=== PATIENT | female | born 1975 | race Caucasian/White ===

== ENCOUNTER 2023-06-29 18:40 | Emergency (ER) | payer OTHER ==
[~2023-06-29] VITALS: Ht 154.9 cm; Wt 72.6 kg
[2023-06-29 18:44] VITALS: BP 138/79
[2023-06-29 19:34] LABS: BASOPHILS ABSOLUTE AUTO 0.03 K/mm3 (0.00-0.23); BASOPHILS PERCENT AUTO 1 % (0-2); EOSINOPHILS ABSOLUTE AUTO 0.05 K/mm3 (0.00-0.68); EOSINOPHILS PERCENT AUTO 1 % (0-6); Hematocrit 35.8 % (33.0-51.0); Hemoglobin 11.4 g/dL (11.5-16.0); IMMATURE GRAN ABSOLUTE AUTO 0.01 K/mm3 (0.00-0.10); IMMATURE GRAN PERCENT AUTO 0 % (0-1); LYMPHOCYTES ABSOLUTE AUTO 1.69 K/mm3 (0.84-5.20); LYMPHOCYTES PERCENT AUTO 26 % (21-46); MONOCYTES ABSOLUTE AUTO 0.67 K/mm3 (0.16-1.47); MONOCYTES PERCENT AUTO 11 % (4-13); Mean Corpuscular HGB 24.9 pg (26.0-34.0); Mean Corpuscular HGB Conc 31.8 g/dL (31.5-36.5); Mean Corpuscular Volume 78 fL (80-100); Mean Platelet Volume 9.8 fL (9.1-12.4); NEUTROPHILS ABSOLUTE AUTO 3.94 K/mm3 (1.96-9.15); NEUTROPHILS PERCENT AUTO 62 % (41-73); Platelet Count 370 K/mm3 (150-400); RDW Coefficient Variation 13.7 % (11.7-14.2); RDW Standard Deviation 39.1 fL (35.1-46.3); Red Blood Cell Count 4.58 M/mm3 (3.80-5.20); White Blood Cell Count 6.39 K/mm3 (4.00-11.30)
[2023-06-29 20:04] LABS: Albumin, Blood 3.8 g/dL (3.4-5.0); Bilirubin, Total 0.6 mg/dL (0.1-1.0); Bun/Creatinine Ratio 27.1 (12.0-20.0); Calcium, Blood 8.7 mg/dL (8.5-10.1); Creatinine, Blood 0.59 mg/dL (0.40-1.00); Globulin, Blood 3.7 g/dL (2.2-4.0); Potassium, Blood 3.3 mmol/L (3.5-5.5); Total Protein, Blood 7.5 g/dL (6.4-8.2)
[2023-06-30] MEDS ORDERED: IRON18 MG (18:11)
[2023-06-30] MEDS ORDERED: WEGOVY2.4 MG/0.7 SC (18:11)
== END 2023-06-29 21:51 | disposition left against medical advice (07) ==
LOC: ER 18:40
PROVIDERS: Student in an Organized Health Care Education/Training Program
DX: Z53.21 Procedure and treatment not carried out due to patient leaving prior to being seen by health care provider (principal)
CPT/HCPCS: 80053; 85025

== ENCOUNTER 2023-06-30 17:08 | Emergency (ER) | payer OTHER ==
[~2023-06-30] VITALS: Ht 154.9 cm; Wt 72.6 kg
[2023-06-30 17:44] LABS: BASOPHILS ABSOLUTE AUTO 0.04 K/mm3 (0.00-0.23); BASOPHILS PERCENT AUTO 1 % (0-2); EOSINOPHILS ABSOLUTE AUTO 0.04 K/mm3 (0.00-0.68); EOSINOPHILS PERCENT AUTO 1 % (0-6); Hematocrit 36.2 % (33.0-51.0); Hemoglobin 11.1 g/dL (11.5-16.0); IMMATURE GRAN ABSOLUTE AUTO 0.01 K/mm3 (0.00-0.10); IMMATURE GRAN PERCENT AUTO 0 % (0-1); LYMPHOCYTES PERCENT AUTO 30 % (21-46); MONOCYTES ABSOLUTE AUTO 0.54 K/mm3 (0.16-1.47); MONOCYTES PERCENT AUTO 8 % (4-13); Mean Corpuscular HGB 24.8 pg (26.0-34.0); Mean Corpuscular HGB Conc 30.7 g/dL (31.5-36.5); Mean Corpuscular Volume 81 fL (80-100); Mean Platelet Volume 9.5 fL (9.1-12.4); NEUTROPHILS PERCENT AUTO 61 % (41-73); Platelet Count 334 K/mm3 (150-400); RDW Coefficient Variation 13.7 % (11.7-14.2); RDW Standard Deviation 40.5 fL (35.1-46.3); Red Blood Cell Count 4.48 M/mm3 (3.80-5.20); White Blood Cell Count 6.43 K/mm3 (4.00-11.30)
[2023-06-30 18:02] LABS: Albumin, Blood 3.7 g/dL (3.4-5.0); Bilirubin, Total 0.4 mg/dL (0.1-1.0); Bun/Creatinine Ratio 29.9 (12.0-20.0); Calcium, Blood 9.1 mg/dL (8.5-10.1); Creatinine, Blood 0.54 mg/dL (0.40-1.00); Globulin, Blood 3.6 g/dL (2.2-4.0); Potassium, Blood 3.4 mmol/L (3.5-5.5); Total Protein, Blood 7.3 g/dL (6.4-8.2)
[2023-06-30] MEDS ORDERED: WEGOVY2.4 MG/0.7 SC (18:11)
[2023-06-30] MEDS ORDERED: IRON18 MG (18:11)
[2023-06-30 19:45] VITALS: BP 115/99
== END 2023-06-30 20:01 | disposition home or self-care (01) ==
LOC: ER 17:08
PROVIDERS: Physician Assistant
DX: K29.00 Acute gastritis without bleeding (principal); Z88.0 Allergy status to penicillin; Z79.85 Long-term (current) use of injectable non-insulin antidiabetic drugs; Z79.899 Other long term (current) drug therapy; Z98.84 Bariatric surgery status; Z90.49 Acquired absence of other specified parts of digestive tract
CPT/HCPCS: 74177; 80053; 83690; 84703; 85025; 99284-25; Q9967

== ENCOUNTER → 2023-07-13 | Outpatient (CLI) | payer OTHER ==
[~2023-07-13] MED LIST: IRON18 MG; WEGOVY2.4 MG/0.7 SC
[2023-07-13 14:54] LABS: BASOPHILS ABSOLUTE AUTO 0.02 K/mm3 (0.00-0.23); BASOPHILS PERCENT AUTO 1 % (0-2); EOSINOPHILS ABSOLUTE AUTO 0.02 K/mm3 (0.00-0.68); EOSINOPHILS PERCENT AUTO 1 % (0-6); Hematocrit 37.3 % (33.0-51.0); Hemoglobin 11.6 g/dL (11.5-16.0); IMMATURE GRAN ABSOLUTE AUTO 0.01 K/mm3 (0.00-0.10); IMMATURE GRAN PERCENT AUTO 0 % (0-1); LYMPHOCYTES ABSOLUTE AUTO 1.27 K/mm3 (0.84-5.20); LYMPHOCYTES PERCENT AUTO 29 % (21-46); MONOCYTES ABSOLUTE AUTO 0.26 K/mm3 (0.16-1.47); MONOCYTES PERCENT AUTO 6 % (4-13); Mean Corpuscular HGB 24.9 pg (26.0-34.0); Mean Corpuscular HGB Conc 31.1 g/dL (31.5-36.5); Mean Corpuscular Volume 80 fL (80-100); Mean Platelet Volume 9.7 fL (9.1-12.4); NEUTROPHILS ABSOLUTE AUTO 2.75 K/mm3 (1.96-9.15); NEUTROPHILS PERCENT AUTO 64 % (41-73); Platelet Count 292 K/mm3 (150-400); RDW Coefficient Variation 13.8 % (11.7-14.2); RDW Standard Deviation 39.6 fL (35.1-46.3); Red Blood Cell Count 4.65 M/mm3 (3.80-5.20); White Blood Cell Count 4.33 K/mm3 (4.00-11.30)
[2023-07-13 15:07] LABS: Albumin, Blood 3.8 g/dL (3.4-5.0); Bilirubin, Total 0.6 mg/dL (0.1-1.0); Bun/Creatinine Ratio 22.7 (12.0-20.0); Calcium, Blood 8.7 mg/dL (8.5-10.1); Creatinine, Blood 0.66 mg/dL (0.40-1.00); Globulin, Blood 3.8 g/dL (2.2-4.0); Potassium, Blood 3.5 mmol/L (3.5-5.5); Total Protein, Blood 7.6 g/dL (6.4-8.2)
== END ==
LOC: LAB 14:46 → LAB SHORT 14:46
PROVIDERS: Physician Assistant Surgical
DX: R42 Dizziness and giddiness (principal)
CPT/HCPCS: 80053; 83690; 85025

== ENCOUNTER 2023-08-01 15:08 | Emergency (ER) | payer OTHER ==
[~2023-08-01] VITALS: Ht 162.6 cm; Wt 68.0 kg
[2023-08-01] MEDS ORDERED: DiphenhydrAMINE HCl 50 MG/ML 1ML Vial IV ONE (16:15)
[2023-08-01] MEDS ORDERED: Metoclopramide HCl 5MG / ML 2ML Vial IV ONE (16:15)
[2023-08-01 16:30] LABS: BASOPHILS ABSOLUTE AUTO 0.02 K/mm3 (0.00-0.23); BASOPHILS PERCENT AUTO 0 % (0-2); EOSINOPHILS PERCENT AUTO 0 % (0-6); Hematocrit 30.9 % (33.0-51.0); Hemoglobin 9.8 g/dL (11.5-16.0); IMMATURE GRAN ABSOLUTE AUTO 0.01 K/mm3 (0.00-0.10); IMMATURE GRAN PERCENT AUTO 0 % (0-1); LYMPHOCYTES ABSOLUTE AUTO 0.64 K/mm3 (0.84-5.20); LYMPHOCYTES PERCENT AUTO 11 % (21-46); MONOCYTES ABSOLUTE AUTO 0.34 K/mm3 (0.16-1.47); MONOCYTES PERCENT AUTO 6 % (4-13); Mean Corpuscular HGB 25.1 pg (26.0-34.0); Mean Corpuscular HGB Conc 31.7 g/dL (31.5-36.5); Mean Corpuscular Volume 79 fL (80-100); Mean Platelet Volume 9.5 fL (9.1-12.4); NEUTROPHILS ABSOLUTE AUTO 4.84 K/mm3 (1.96-9.15); NEUTROPHILS PERCENT AUTO 83 % (41-73); Platelet Count 293 K/mm3 (150-400); RDW Coefficient Variation 13.2 % (11.7-14.2); RDW Standard Deviation 37.6 fL (35.1-46.3); White Blood Cell Count 5.85 K/mm3 (4.00-11.30)
[2023-08-01 16:50] LABS: Albumin, Blood 3.3 g/dL (3.4-5.0); Albumin/Globulin Ratio 1.1 (0.8-1.8); Bilirubin, Total 0.8 mg/dL (0.1-1.0); Bun/Creatinine Ratio 17.4 (12.0-20.0); Calcium, Blood 8.4 mg/dL (8.5-10.1); Creatinine, Blood 0.57 mg/dL (0.40-1.00); Globulin, Blood 3.1 g/dL (2.2-4.0); Magnesium, Blood 1.8 mg/dL (1.6-2.4); Potassium, Blood 3.3 mmol/L (3.5-5.5); Total Protein, Blood 6.4 g/dL (6.4-8.2)
[2023-08-01] MEDS ORDERED: LORazepam 2 MG/ML 1ML Injection IV ONE (17:20)
[2023-08-01] MEDS ORDERED: Potassium Chloride 20 MEQ TabCR PO ONE (17:25)
[2023-08-01] MEDS ORDERED: NS 1,000 ML IV SCH (17:25)
[2023-08-01 17:47] LABS: Influenza A, PCR NEGATIVE (NEGATIVE); Influenza B, PCR NEGATIVE (NEGATIVE); Resp Syncytial Virus, PCR NEGATIVE (NEGATIVE); SARS-Cov-2 (COVID-19) PCR, MMC NEGATIVE (NEGATIVE)
[2023-08-01] MEDS ORDERED: Meclizine HCl 25 MG Tab PO ONE (18:25)
[2023-08-01] MEDS ORDERED: PROM25 PO (19:44)
[2023-08-01 19:45] VITALS: BP 124/74
[2023-08-01] MEDS ORDERED: RX Prepack 2 Tabs Ondansetron ODT 4MG UD ONE (19:45)
== END 2023-08-01 20:05 | disposition home or self-care (01) ==
LOC: ER 15:08
PROVIDERS: Student in an Organized Health Care Education/Training Program
DX: E87.6 Hypokalemia (principal); Z79.84 Long term (current) use of oral hypoglycemic drugs; Z88.0 Allergy status to penicillin
CPT/HCPCS: 0241U; 70450; 80053; 83690; 83735; 85025; 93005; 93010; 96361; 96374; 96375; 99285-25; A9270; J1200; J2060; J2765; J7030

== ENCOUNTER 2023-08-06 07:41 | Inpatient (IN) | payer OTHER ==
[~2023-08-06] VITALS: Ht 157.5 cm; Wt 73.6 kg
[~2023-08-06 07:41] MED LIST changes: +PROM25 PO
[2023-08-06] MEDS ORDERED: NS 1,000 ML IV SCH (07:55)
[2023-08-06] MEDS ORDERED: HYDROmorphone HCl/Pf 1MG SYR IV ONE (08:55)
[2023-08-06] MEDS ORDERED: Ondansetron HCl 2 MG / ML 2ML Vial IV ONE (08:55)
[2023-08-06 09:06] LABS: BASOPHILS ABSOLUTE AUTO 0.02 K/mm3 (0.00-0.23); BASOPHILS PERCENT AUTO 1 % (0-2); EOSINOPHILS ABSOLUTE AUTO 0.05 K/mm3 (0.00-0.68); EOSINOPHILS PERCENT AUTO 1 % (0-6); Hematocrit 32.6 % (33.0-51.0); Hemoglobin 10.1 g/dL (11.5-16.0); IMMATURE GRAN ABSOLUTE AUTO 0.01 K/mm3 (0.00-0.10); IMMATURE GRAN PERCENT AUTO 0 % (0-1); LYMPHOCYTES ABSOLUTE AUTO 0.75 K/mm3 (0.84-5.20); LYMPHOCYTES PERCENT AUTO 19 % (21-46); MONOCYTES ABSOLUTE AUTO 0.52 K/mm3 (0.16-1.47); MONOCYTES PERCENT AUTO 14 % (4-13); Mean Corpuscular HGB 24.8 pg (26.0-34.0); Mean Corpuscular Volume 80 fL (80-100); Mean Platelet Volume 9.9 fL (9.1-12.4); NEUTROPHILS ABSOLUTE AUTO 2.51 K/mm3 (1.96-9.15); NEUTROPHILS PERCENT AUTO 65 % (41-73); Platelet Count 235 K/mm3 (150-400); RDW Coefficient Variation 13.2 % (11.7-14.2); RDW Standard Deviation 38.1 fL (35.1-46.3); Red Blood Cell Count 4.07 M/mm3 (3.80-5.20); White Blood Cell Count 3.86 K/mm3 (4.00-11.30)
[2023-08-06 09:23] LABS: Alanine Aminotransfer (ALT/SGP 13 U/L (12-78); Albumin, Blood 3.4 g/dL (3.4-5.0); Albumin/Globulin Ratio 1.1 (0.8-1.8); Alk Phos 62 U/L (50-136); Anion Gap Unable to Calculate mmol/L (6-16); Aspartate Aminotrans (AST/SGOT 12 U/L (12-37); Bilirubin, Total 0.5 mg/dL (0.1-1.0); Blood Urea Nitrogen 10 mg/dL (8-24); Bun/Creatinine Ratio 16.1 (12.0-20.0); CO2, Blood 29 mmol/L (21-32); Calcium, Blood 8.7 mg/dL (8.5-10.1); Chloride, Blood 112 mmol/L (98-108); Creatinine, Blood 0.62 mg/dL (0.40-1.00); Globulin, Blood 3.2 g/dL (2.2-4.0); Glomerular Filtration Rate 112 (60-); Glucose, Blood 88 mg/dL (70-99); Potassium, Blood 3.8 mmol/L (3.5-5.5); Sodium, Blood 140 mmol/L (136-145); Total Protein, Blood 6.6 g/dL (6.4-8.2)
[2023-08-06] MEDS ORDERED: Ondansetron HCl 2 MG / ML 2ML Vial ONE (10:24)
[2023-08-06 10:53] LABS: Influenza A, PCR NEGATIVE (NEGATIVE); Influenza B, PCR NEGATIVE (NEGATIVE); Resp Syncytial Virus, PCR NEGATIVE (NEGATIVE); SARS-Cov-2 (COVID-19) PCR, MMC NEGATIVE (NEGATIVE)
[2023-08-06] MEDS ORDERED: CefTRIAXone Sodium 1,000 MG in NS 50 ML IV ONE (11:55)
[2023-08-06] MEDS ORDERED: Meclizine HCl 25 MG Tab PO ONE (12:40)
[2023-08-06] MEDS ORDERED: Ketorolac Tromethamine 30mg Vial IV ONE (12:40)
[2023-08-06 12:46] LABS: Prothrombin Time Results 10.5 Sec (9.7-11.5)
[2023-08-06 15:19] LABS: Glucose, CSF 51 mg/dL (40-70)
[2023-08-06 15:22] LABS: Automated CSF WBC Count 0.001 K/mm3 (0-5)
[2023-08-06 15:24] LABS: Automated CSF WBC Count 0.002 K/mm3 (0-5)
[2023-08-06] MEDS ORDERED: Promethazine HCl 25 MG Tab PO PRN (15:45)
[2023-08-06] MEDS ORDERED: Acetaminophen 325 MG TABLET PO PRN (15:55)
[2023-08-06] MEDS ORDERED: FLU VACC QS2023-24(6MOS UP)/PF 60 MCG/0.5 ML SYRINGE IM SCH (15:55)
[2023-08-06 16:07] LABS: RBC Count, CSF 0 /mm3 (0-0); WBC Count, CSF 1 /mm3 (0-5)
[2023-08-06 16:29] LABS: RBC Count, CSF 1 /mm3 (0-0); WBC Count, CSF 1 /mm3 (0-5)
[2023-08-06 16:33] LABS: Appearance, CSF Clear (Clear); Color, CSF No Color (No Color)
[2023-08-06 16:34] LABS: Appearance, CSF Clear (Clear); Color, CSF No Color (No Color)
[2023-08-06 17:04] LABS: Cryptococcus Neoformans/Gattii Not Detected (NOT DETECT); Enterovirus Not Detected (NOT DETECT); Escherichia Coli K1 Not Detected (NOT DETECT); Haemophilus Influenza Not Detected (NOT DETECT); Herpes Simplex Virus 1 Not Detected (NOT DETECT); Herpes Simplex Virus 2 Not Detected (NOT DETECT); Human Herpesvirus 6 Not Detected (NOT DETECT); Human Parechovirus Not Detected (NOT DETECT); Listeria Monocytogenes Not Detected (NOT DETECT); Neisseria Meningitidis Not Detected (NOT DETECT); Streptococcus Agalactiae Not Detected (NOT DETECT); Streptococcus Pneumoniae Not Detected (NOT DETECT); Varicella Zoster Virus Not Detected (NOT DETECT)
[2023-08-06 18:18] VITALS: BP 127/79
--- NOTE | 2023-08-06 18:29 | NUR ---
Pt arrived to 328 via wheelchair from ED, she is able to easily stand and move to bed, she reports dizziness, but has a stable gait, a/ox4, pleasant and cooperative with care, follows commands well, denies numbness or tingling, lungs are clear t/o, on r/a, resp even and unlabored, no cough noted, hrr, no edema noted, ppp+2, cap refill <3 sec, vs stable, afebrile, iv site is clear an patent, s.l. btx4, abd flat soft nontender, voids without diff, skin c/w/d, eliseo thurston, oriented to room layout and call system, call light in reach.
[2023-08-06] MEDS ORDERED: FEROSUL325 MG PO (18:59)
[2023-08-06 20:03] VITALS: BP 124/72
[2023-08-06] MEDS ORDERED: Azithromycin 250 MG Tab PO SCH (21:00)
[2023-08-06] MEDS ORDERED: NS 250 ML IV PRN (21:10)
[2023-08-07 03:21] VITALS: BP 110/57
--- NOTE | 2023-08-07 04:35 | NUR ---
SHIFT SUMMARY PT A&OX4 AND ANSWERS QUESTIONS APPROPRIATELY. VSS. NO COMPLAINTS OF CP OR SOB DURING SHIFT. PT COMPLAINS OF DIZZINESS, INFORMED PHYSICIAN AND ADMINISTERED PHENERGAN. ANTIBIOTICS ORDERED AND ADMINISTERED PER EMAR FOR PNEUMONIA. NO ACUTE EVENTS AT THIS TIME, PT SLEPT THROUGH MOST OF SHIFT WITH EYES CLOSED AND RESPIRATIONS EVEN AND UNLABORED. PT LEFT IN A POSITION OF SAFETY WITH APPROPRIATE FALL PRECAUTIONS IN PLACE AND CALL LIGHT IN REACH.
[2023-08-07 05:27] LABS: BASOPHILS ABSOLUTE AUTO 0.02 K/mm3 (0.00-0.23); BASOPHILS PERCENT AUTO 1 % (0-2); EOSINOPHILS ABSOLUTE AUTO 0.08 K/mm3 (0.00-0.68); EOSINOPHILS PERCENT AUTO 2 % (0-6); Hemoglobin 9.3 g/dL (11.5-16.0); IMMATURE GRAN ABSOLUTE AUTO 0.01 K/mm3 (0.00-0.10); IMMATURE GRAN PERCENT AUTO 0 % (0-1); LYMPHOCYTES ABSOLUTE AUTO 0.92 K/mm3 (0.84-5.20); LYMPHOCYTES PERCENT AUTO 25 % (21-46); MONOCYTES ABSOLUTE AUTO 0.56 K/mm3 (0.16-1.47); MONOCYTES PERCENT AUTO 15 % (4-13); Mean Corpuscular HGB 24.7 pg (26.0-34.0); Mean Corpuscular Volume 80 fL (80-100); Mean Platelet Volume 9.8 fL (9.1-12.4); NEUTROPHILS ABSOLUTE AUTO 2.16 K/mm3 (1.96-9.15); NEUTROPHILS PERCENT AUTO 58 % (41-73); Platelet Count 205 K/mm3 (150-400); RDW Coefficient Variation 13.2 % (11.7-14.2); RDW Standard Deviation 37.8 fL (35.1-46.3); Red Blood Cell Count 3.77 M/mm3 (3.80-5.20); White Blood Cell Count 3.75 K/mm3 (4.00-11.30)
[2023-08-07 05:55] LABS: Albumin, Blood 2.9 g/dL (3.4-5.0); Albumin/Globulin Ratio 0.9 (0.8-1.8); Bilirubin, Total 0.3 mg/dL (0.1-1.0); Bun/Creatinine Ratio 22.9 (12.0-20.0); Calcium, Blood 8.4 mg/dL (8.5-10.1); Creatinine, Blood 0.66 mg/dL (0.40-1.00); Globulin, Blood 3.2 g/dL (2.2-4.0); Magnesium, Blood 1.9 mg/dL (1.6-2.4); Total Protein, Blood 6.1 g/dL (6.4-8.2)
[2023-08-07 08:04] VITALS: BP 112/75
[2023-08-07] MEDS ORDERED: Metoclopramide HCl 5MG / ML 2ML Vial IV ONE (08:20)
[2023-08-07] MEDS ORDERED: Dihydroergotamine Mesylate 1 MG/ML AMP IV ONE (08:20)
[2023-08-07] MEDS ORDERED: NS 1,000 ML IV SCH (08:30)
[2023-08-07] MEDS ORDERED: Ketorolac Tromethamine 30mg Vial IM ONE (09:00)
[2023-08-07] MEDS ORDERED: Enoxaparin 40 MG/0.4 ML SYR SC SCH (09:00)
[2023-08-07 10:03] VITALS: BP 126/79
[2023-08-07 10:30] VITALS: BP 127/83
[2023-08-07] MEDS ORDERED: CefTRIAXone Sodium 1,000 MG in NS 50 ML IV SCH (12:00)
[2023-08-07 15:11] VITALS: BP 124/68
[2023-08-07] MEDS ORDERED: AZIT500 PO (17:21)
[2023-08-07] MEDS ORDERED: MECL25 PO (17:22)
[2023-08-07] MEDS ORDERED: CEFP200 PO (17:22)
[2023-08-07] MEDS ORDERED: METO10 PO (17:24)
--- NOTE | 2023-08-07 19:55 | NUR ---
DISCHARGE SUMMARY PATIENT GIVEN NEW MIGRAINE MEDICATION THIS AM THROUGH IV, DHE. PATIENT REPORTED BURNING IN HER HEAD WITH ADMINISTRATION AFTER MOST MEDICATION WAS IN. MORGUE TECHNICIAN STOPPED MED IMMEDIATELY AND DID NOT GIVE LAST 0.15ML OF MEDICATION WHICH WAS DILUTED IN SALINE SYRINGE TO TOTAL 1.5ML IN SALINE NOT GIVEN. MEDICATION WAS GIVEN OVER 2-[address] DANIEL, ORDER TO NOT GIVE REST OF IT, GIVE THE ORDERED REGLAN AND TORADOL. MEDS GIVEN, PATIENT REPORTS CHEST TIGHNTESS, SO EKG DONE AND DR NOTIFIED. CARIE BURCH. SYMPTOMS RESOLVED OVER NEXT HOUR. PATIENT REPORTS BASELINE OF HEADACHE AND DIZZINESS SHE ORIGINALLY CAME IN WITH. PATIENT WAS DISCHARGED TODAY AFTER CONSENTS SIGNED AND MEDICATION AND EDUCATION PRINTOUTS PROVIDED AND REVIEWED WITH PATIENT AND . PATIENT LEFT UNIT AT 1745 TODAY WITH ALL QUESTIONS ANSWERED. MEDICATIONS FAXED TO [facility].
== END 2023-08-07 17:45 | disposition home or self-care (01) | DRG 149 ==
LOC: ER 07:41 → MEDS 15:51
PROVIDERS: Emergency Medicine; ADMIT Family Medicine
DX: R42 Dizziness and giddiness (principal); J18.9 Pneumonia, unspecified organism; R11.2 Nausea with vomiting, unspecified; M54.2 Cervicalgia; Z11.52 Encounter for screening for COVID-19; Z88.0 Allergy status to penicillin; Z79.899 Other long term (current) drug therapy
CPT/HCPCS: 0241U; 36415; 62270; 62328; 70496; 70498; 71046; 80053; 82945; 83735; 84157; 85025; 85610; 87483; 89051; 93005; 93010; 96365-59; 96375-59; 96376-59; 99285-25; A9270; J0696; J1110; J1170; J1650; J1885; J2405; J2765; J7030; Q9967

== ENCOUNTER 2023-10-01 07:47 | Emergency (ER) | payer OTHER ==
[~2023-10-01] VITALS: Ht 154.9 cm; Wt 83.9 kg
[~2023-10-01 07:47] MED LIST changes: +AZIT500 PO; +CEFP200 PO; +FEROSUL325 MG PO; +MECL25 PO; +METO10 PO
[2023-10-01 10:25] LABS: BASOPHILS ABSOLUTE AUTO 0.04 K/mm3 (0.00-0.23); BASOPHILS PERCENT AUTO 1 % (0-2); EOSINOPHILS ABSOLUTE AUTO 0.04 K/mm3 (0.00-0.68); EOSINOPHILS PERCENT AUTO 1 % (0-6); Hematocrit 31.5 % (33.0-51.0); Hemoglobin 9.1 g/dL (11.5-16.0); IMMATURE GRAN ABSOLUTE AUTO 0.02 K/mm3 (0.00-0.10); IMMATURE GRAN PERCENT AUTO 0 % (0-1); LYMPHOCYTES ABSOLUTE AUTO 1.43 K/mm3 (0.84-5.20); LYMPHOCYTES PERCENT AUTO 26 % (21-46); MONOCYTES ABSOLUTE AUTO 0.48 K/mm3 (0.16-1.47); MONOCYTES PERCENT AUTO 9 % (4-13); Mean Corpuscular HGB 22.7 pg (26.0-34.0); Mean Corpuscular HGB Conc 28.9 g/dL (31.5-36.5); Mean Corpuscular Volume 79 fL (80-100); Mean Platelet Volume 10.1 fL (9.1-12.4); NEUTROPHILS ABSOLUTE AUTO 3.53 K/mm3 (1.96-9.15); NEUTROPHILS PERCENT AUTO 64 % (41-73); Platelet Count 267 K/mm3 (150-400); RDW Coefficient Variation 13.4 % (11.7-14.2); RDW Standard Deviation 38.1 fL (35.1-46.3); Red Blood Cell Count 4.01 M/mm3 (3.80-5.20); White Blood Cell Count 5.54 K/mm3 (4.00-11.30)
[2023-10-01 10:54] LABS: Albumin, Blood 3.2 g/dL (3.4-5.0); Albumin/Globulin Ratio 0.9 (0.8-1.8); Bilirubin, Total 0.4 mg/dL (0.1-1.0); Bun/Creatinine Ratio 22.3 (12.0-20.0); Calcium, Blood 8.6 mg/dL (8.5-10.1); Creatinine, Blood 0.58 mg/dL (0.40-1.00); Globulin, Blood 3.4 g/dL (2.2-4.0); Potassium, Blood 3.9 mmol/L (3.5-5.5); Total Protein, Blood 6.6 g/dL (6.4-8.2)
[2023-10-01 11:48] VITALS: BP 137/94
[2023-10-01] MEDS ORDERED: IBUP600 PO (11:55)
== END 2023-10-01 12:03 | disposition home or self-care (01) ==
LOC: ER 07:47
PROVIDERS: Physician Assistant
DX: R42 Dizziness and giddiness (principal); H73.893 Other specified disorders of tympanic membrane, bilateral; Z79.899 Other long term (current) drug therapy; Z88.0 Allergy status to penicillin
CPT/HCPCS: 80053; 85025; 93005; 93010; 99284-25

== ENCOUNTER 2024-02-05 09:06 | Emergency (ER) | payer OTHER ==
[~2024-02-05] VITALS: Ht 165.1 cm; Wt 74.8 kg
[~2024-02-05 09:06] MED LIST changes: +IBUP600 PO
[2024-02-05] MEDS ORDERED: BUPROPION XL150 M1 PO (09:58)
[2024-02-05] MEDS ORDERED: ENSKYCE 28 TAB1 EACH PO (09:58)
[2024-02-05 17:00] VITALS: BP 126/90
== END 2024-02-05 17:30 | disposition home or self-care (01) ==
LOC: ER 09:06
DX: R42 Dizziness and giddiness (principal); R20.2 Paresthesia of skin; Z79.899 Other long term (current) drug therapy; Z88.0 Allergy status to penicillin
CPT/HCPCS: 70553; 72156; 99283-25; A9579

== ENCOUNTER → 2025-03-04 | Outpatient (CLI) | payer OTHER ==
[~2025-03-04] MED LIST changes: +ACET500 PO; +AMLODIPINE BESYL5 MG PO; +BUPROPION XL150 M1 PO; +ENSKYCE 28 TAB1 EACH PO
[2025-03-06 22:21] LABS: CREATININE,URINE - PER 24H 1440 mg/d (700-1600); CREATININE,URINE - PER VOLUME 144 mg/dL; DOPAMINE,URINE - PER 24H 289 ug/d (71-485); DOPAMINE,URINE - PER VOLUME 289 ug/L; DOPAMINE,URINE - RATIO TO CRT 201 ug/g CRT (0-250); EPINEPHRINE,URINE - PER 24H 3 ug/d (1-14); EPINEPHRINE,URINE - PER VOLUME 3 ug/L; EPINEPHRINE,URN - RATIO TO CRT 2 ug/g CRT (0-20); HOURS COLLECTED 24 hr; NOREPINEPHRINE,UR - PER VOLUME 32 ug/L; NOREPINEPHRINE,URINE - PER 24H 32 ug/d (14-120); NOREPINEPHRINE,URN/CRT RATIO 22 ug/g CRT (0-45)
[2025-03-08 07:45] LABS: CORTISOL,U FREE - RATIO TO CRT 7.43 ug/g CRT; CORTISOL,URINE FREE - PER 24H 10.7 ug/d (<=45.0); CORTISOL,URN FREE - PER VOLUME 10.70 ug/L; CREATININE,URINE - PER 24H 1440 mg/d (700-1600); CREATININE,URINE - PER VOLUME 144 mg/dL; HOURS COLLECTED 24 hr
== END ==
LOC: LAB 06:20 → LAB SHORT 06:20
PROVIDERS: Family Medicine
DX: R89.9 Unspecified abnormal finding in specimens from other organs, systems and tissues (principal)
CPT/HCPCS: 81050; 82384; 82530